=== PATIENT | female | born 1995 | race Caucasian/White ===

== ENCOUNTER 2017-09-18 22:08 | Emergency (ER) | payer MEDICAID ==
[~2017-09-18] VITALS: Ht 165.1 cm; Wt 91.0 kg
[~2017-09-18 22:08] MED LIST: HYDR-1348 PO
[2017-09-18] MEDS ORDERED: KETOROLAC 60MG/2ML VIAL IM ONE (23:15)
[2017-09-18] MEDS ORDERED: PENICILLIN G BENZATHINE 1,200,000 UNITS/2ML SYR IM ONE (23:15)
[2017-09-18 23:22] VITALS: BP 142/73
== END 2017-09-18 23:35 | disposition home or self-care (01) ==
LOC: ER 23:34
DX: J02.9 Acute pharyngitis, unspecified (principal); H66.92 Otitis media, unspecified, left ear; Z90.49 Acquired absence of other specified parts of digestive tract
CPT/HCPCS: 81025; 96372; 99284; J0561; J1885

== ENCOUNTER 2017-09-26 06:42 | Emergency (ER) | payer MEDICAID ==
[~2017-09-26] VITALS: Ht 165.1 cm; Wt 88.0 kg
[2017-09-26] MEDS ORDERED: KETOROLAC 60MG/2ML VIAL IM ONE (11:45)
[2017-09-26 11:49] VITALS: BP 135/86
== END 2017-09-26 11:54 | disposition home or self-care (01) ==
LOC: ER 06:42
DX: H66.91 Otitis media, unspecified, right ear (principal); Z90.49 Acquired absence of other specified parts of digestive tract
CPT/HCPCS: 81025; 96372; 99283; J1885

== ENCOUNTER 2017-11-12 20:12 | Emergency (ER) | payer MEDICAID ==
[~2017-11-12] VITALS: Ht 165.1 cm; Wt 91.0 kg
[2017-11-12 23:43] VITALS: BP 110/75
== END 2017-11-12 23:45 | disposition home or self-care (01) ==
LOC: ER 20:12
DX: T78.40XA Allergy, unspecified, initial encounter (principal); L50.0 Allergic urticaria
CPT/HCPCS: 99283

== ENCOUNTER 2019-02-09 20:23 | Emergency (ER) | payer MEDICAID ==
[~2019-02-09] VITALS: Ht 165.1 cm; Wt 80.0 kg
[2019-02-09] MEDS ORDERED: SODIUM CHLORIDE 0.9% 1,000 ML IV ONE (21:25)
[2019-02-09] MEDS ORDERED: METHYLPREDNISOLONE SOD SUCC 125 MG/2 ML VIAL IV ONE (21:30)
[2019-02-09] MEDS ORDERED: DIPHENHYDRAMINE 50MG/ML VIAL IM PRN (21:30)
[2019-02-10 01:20] VITALS: BP 121/69
== END 2019-02-10 01:41 | disposition home or self-care (01) ==
LOC: ER 20:23
DX: T78.40XA Allergy, unspecified, initial encounter (principal); Z90.49 Acquired absence of other specified parts of digestive tract; X58.XXXA Exposure to other specified factors, initial encounter
CPT/HCPCS: 96372; 96374; 99283; J1200; J2930; J7030; Z7610

== ENCOUNTER 2021-08-12 10:20 | Emergency (ER) | payer MEDICAID ==
[~2021-08-12] VITALS: Ht 165.1 cm; Wt 114.0 kg
[2021-08-12 12:23] LABS: BASOPHILS % 0.6 % (0.0-2.0); EOSINOPHILS % 1.4 % (0.0-5.0); HEMATOCRIT. 24.6 % (36.0-48.0); HEMOGLOBIN. 8.4 g/dL (12.0-16.0); LYMPHOCYTES % 26.2 % (20.0-50.0); MEAN CORPUSCULAR HEMOGLOBIN 27.4 pg (28.0-32.0); MEAN CORPUSCULAR VOLUME 80.7 fL (81.0-99.0); MONOCYTES % 6.6 % (2.0-8.0); NEUTROPHILS % 65.2 % (40.0-76.0); PLATELET 312 x1000/uL (130-400); RED BLOOD CELL COUNT 3.05 mill/uL (4.2-5.4); RED CELL DISTRIBUTION WIDTH 13.9 % (11.6-14.6)
[2021-08-12 12:30] LABS: INR 0.9; PROTHROMBIN TIME 10.2 sec (9.6-11.0)
[2021-08-12 12:32] LABS: CHLORIDE 111 mEq/L (98-107)
[2021-08-12 12:44] LABS: B-HCG QUANTITATIVE < 1 mIU/mL (<3)
[2021-08-12 13:27] VITALS: BP 118/96
== END 2021-08-12 15:10 | disposition left against medical advice (07) ==
LOC: ER 10:20
DX: N93.8 Other specified abnormal uterine and vaginal bleeding (principal); Z90.49 Acquired absence of other specified parts of digestive tract
CPT/HCPCS: 36415; 76830; 76856; 80053; 84702; 85025; 99284